=== PATIENT | female | born 1960 | race Caucasian/White ===

== ENCOUNTER 2021-02-08 17:37 | Emergency (ER) | payer MEDICARE ==
[2021-02-08] MEDS ORDERED: Sodium Chloride 0.9% 1,000 ML ONE (17:55)
[2021-02-08] MEDS ORDERED: Ketorolac Tromethamine 30 MG/ML VIAL ONE (17:55)
[2021-02-08 18:25] LABS: #Basophils 0.1 thou/uL (0.0-0.2); #Eosinphils 0.1 thou/uL (0.0-0.7); #Lymphocytes 0.9 thou/uL (1.20-3.40); #Monocytes 0.4 thou/uL (0.11-0.59); #Neutrophils 9.1 thou/uL (1.40-6.50); %Eosinophils 0.7 % (0.0-10.0); %Lymphocytes 8.2 % (21.0-51.0); %Monocytes 3.8 % (0.0-10.0); %Neutrophils 86.4 % (42.0-75.0); Hemoglobin 15.3 g/dL (12.0-16.0); Mean Corpuscular HGB CONC 30.8 g/dL (32.0-36.0); Mean Corpuscular Hemoglobin 32.3 pg (27.0-31.0); Mean Platelet Volume 6.7 fL (7.4-10.4); Platelet Count 200 thou/uL (130-400); RBC Distribution Width 12.9 % (11.5-14.5); Red Blood Cell (RBC) Count 4.74 mill/uL (4.20-5.40); White Blood Cell (WBC) Count 10.5 thou/uL (4.8-10.8)
[2021-02-08 18:33] LABS: Bilirubin Negative (Negative); Blood, Urine Negative (Negative); Clarity Cloudy (Clear); Glucose, Urine (Dipstick) Negative (Negative); Ketone, Urine Trace mg/dL (Negative); Leukocyte Trace (Negative); Nitrite Negative (Negative); Protein, Urine (Dipstick) Negative (Neg-Trace); Specific Gravity, Urine 1.025 (1.005-1.030)
[2021-02-08 18:35] LABS: Platelet Morphology Comment Appears Decreased
[2021-02-08 18:36] LABS: Macrocytosis SLIGHT = 6-15 cells (100X) (0-5/hpf)
[2021-02-08 18:41] LABS: Bacteria/HPF 1+ HPF (None Seen); Mucous/LPF 1+ LPF (<2+); RBC/HPF 0-3 HPF (0-3)
[2021-02-08 18:41] LABS: ALT (SGPT) 47 U/L (8-55); AST (SGOT) 60 U/L (5-34); Albumin 3.7 g/dL (3.4-4.8); Alkaline Phosphatase 118 U/L (40-110); Anion Gap 11 mmol/L (10-20); BUN (Urea Nitrogen) 13 mg/dL (9.8-20.1); Bilirubin, Total 0.5 mg/dL (0.2-1.2); Calc. Creatinine Clearance 0 mL/min (70-130); Calcium 9.2 mg/dL (7.8-10.44); Carbon Dioxide 23 mmol/L (23-31); Chloride 110 mmol/L (98-107); Globulin 3.9 g/dL (2.4-3.5); Glucose 117 mg/dL (80-115); Potassium 3.5 mmol/L (3.5-5.1); Protein, Total 7.6 g/dL (5.8-8.1); Sodium 140 mmol/L (136-145)
[2021-02-08] MEDS ORDERED: traMADol HCl 50 MG TAB ONE (19:05)
[2021-02-08] MEDS ORDERED: Cephalexin 250 MG CAP ONE (19:11)
== END 2021-02-08 19:24 | disposition home or self-care (01) ==
LOC: NAV ERS 17:37
DX: N13.2 Hydronephrosis with renal and ureteral calculous obstruction (principal); N39.0 Urinary tract infection, site not specified; E78.00 Pure hypercholesterolemia, unspecified; E78.5 Hyperlipidemia, unspecified; I10 Essential (primary) hypertension; Z79.899 Other long term (current) drug therapy
CPT/HCPCS: 36415; 74176; 80053; 81003; 81015; 85025; 96374; J1885; J7050